=== PATIENT | female | born 1990 ===

== ENCOUNTER 2021-03-01 12:35 | Emergency (ER) | payer OTHER ==
[~2021-03-01] VITALS: Ht 182.9 cm; Wt 90.7 kg
[2021-03-01] MEDS ORDERED: AMOCLA875 PO (14:04)
[2021-03-01] MEDS ORDERED: ONDA4ODT MM (14:04)
== END 2021-03-01 14:30 | disposition home or self-care (01) ==
LOC: ER 12:35
DX: K04.7 Periapical abscess without sinus (principal); K03.81 Cracked tooth; Z88.0 Allergy status to penicillin
CPT/HCPCS: 99282